=== PATIENT | male | born 1985 | race Caucasian/White ===

== ENCOUNTER 2020-11-06 17:08 | Emergency (ER) | payer MEDICARE, OTHER ==
[~2020-11-06] VITALS: Ht 172.7 cm; Wt 74.8 kg
[2020-11-06] MEDS ORDERED: NEURONTIN (17:14)
--- NOTE | 2020-11-06 17:18 | NUR ---
PATIENT WAS MSE BY DR RIVAS IN ROOM 03A.
[2020-11-06] MEDS ORDERED: LORAZEPAM 0.5 MG TABLET PO ONE (17:30)
[2020-11-06] MEDS ORDERED: LORAZEPAM 0.5 MG TABLET ONE (17:33)
--- NOTE | 2020-11-06 17:42 | NUR ---
CALLED AND SPOKE WITH PATIENT ISAIAS WILL COME IN 1 HOUR TO BASKET MENDER PATIENT.
--- NOTE | 2020-11-06 19:26 | NUR ---
Patient discharged to home in stable condition. Written and verbal after care instructions given. Patient and verbalizes understanding of instructions. Stressed follow up or return to ER for worsening s/s.
[2020-11-06 19:28] VITALS: BP 135/88
== END 2020-11-06 19:29 | disposition home or self-care (01) ==
LOC: ER 17:11
DX: F41.1 Generalized anxiety disorder (principal); R00.0 Tachycardia, unspecified; R94.31 Abnormal electrocardiogram [ECG] [EKG]; H54.8 Legal blindness, as defined in USA; R03.0 Elevated blood-pressure reading, without diagnosis of hypertension
CPT/HCPCS: 93005; A4663

== ENCOUNTER 2021-02-07 11:22 | Emergency (ER) | payer MEDICARE, OTHER ==
[~2021-02-07] VITALS: Ht 175.3 cm; Wt 77.1 kg
[~2021-02-07 11:22] MED LIST: NEURONTIN
--- NOTE | 2021-02-07 11:25 | NUR ---
Patient brought in [facility] for an intentional overdose of gabapentin
--- NOTE | 2021-02-07 11:30 | NUR ---
[employer] at bedside speaking with the pt about the incident.
[2021-02-07] MEDS ORDERED: DIAZ5TAB4 PO (11:34)
[2021-02-07] MEDS ORDERED: GABA-532 PO (11:34)
[2021-02-07] MEDS ORDERED: DULO60CA45 PO (11:34)
[2021-02-07] MEDS ORDERED: OLAN10TA3 PO (11:34)
[2021-02-07 11:52] LABS: *BILIRUBIN,URIN NEGATIVE (NEGATIVE); *BLOOD, URINE NEGATIVE (NEGATIVE); *CLARITY,URINE CLEAR (CLEAR); *COLOR,URINE YELLOW (YELLOW); *KETONES,URINE NEGATIVE (NEGATIVE); *UROBILINOGEN,URINE 0.2 E.U./dl (NORMAL); LEUKOCYTE ESTERASE ,URINE NEGATIVE (NEGATIVE); NITRITE, URINE NEGATIVE (NEGATIVE); PH,URINE 8.5 (5.0-8.0); UGLUCOSE NEGATIVE (NEGATIVE)
[2021-02-07 11:59] LABS: HEMATOCRIT 49.5 % (36.7-47.1); MEAN CORPUSCULAR HEMOGLOBIN 31.8 uug (23.8-33.4); MEAN CORPUSCULAR VOLUME 91.5 fL (73.0-96.2); PLATELET COUNT (AUTO) 132 K/uL (152-348)
[2021-02-07 12:03] LABS: *AMPHETAMINE, URINE NEGATIVE (NEGATIVE); *CANNABINOID, URINE NEGATIVE (NEGATIVE); *COCCAINE, URINE NEGATIVE (NEGATIVE); *OPIATE, URINE NEGATIVE (NEGATIVE); *PHENCYCLIDINE SCREEN,URINE NEGATIVE (NEGATIVE)
[2021-02-07] MEDS ORDERED: LORAZEPAM 2 MG/1 ML VIAL ONE ×3 (12:09→20:32)
--- NOTE | 2021-02-07 12:09 | NUR ---
Security noted at bedside for 1 to 1 observation, patient states he took the excessive amount of gabapentin because he was anxious while watching tv
[2021-02-07 12:10] LABS: ALANINE AMINOTRANSFERASE 25 U/L (16-63); ALKALINE PHOSPHATASE 63 U/L (50-136); ASPARTATE AMINOTRANSFERASE 11 U/L (15-37); BILIRUBIN,DIRECT 0.1 mg/dL (0.0-0.2); BILIRUBIN,TOTAL 0.8 mg/dL (0.2-1.0); CARBON DIOXIDE 29 mmol/L (21-32); CHLORIDE 106 mmol/L (98-107); CREATINE KINASE, TOTAL 128 U/L (39-308); CREATININE 1.2 mg/dL (0.6-1.3); GLUCOSE 128 mg/dL (74-106); POTASSIUM 4.3 mmol/L (3.5-5.1); TOTAL PROTEIN, SERUM 7.3 g/dL (6.4-8.2); UREA NITROGEN, BLOOD 15 mg/dL (7-18)
[2021-02-07 12:14] LABS: ACETAMINOPHEN < 2.0 ug/mL (10-30)
[2021-02-07] MEDS ORDERED: LORAZEPAM 2 MG/1 ML VIAL IV ONE ×3 (12:15→20:30)
[2021-02-07 12:17] LABS: THYROID STIMULATING HORMONE 1.428 mIU/mL (0.358-3.740)
[2021-02-07 12:40] LABS: ETHANOL < 3 MG/DL (0-0)
--- NOTE | 2021-02-07 13:28 | NUR ---
Bri called at this time for evaluation, message left
[2021-02-07] MEDS ORDERED: IV NS 1000 ML 1,000 ML IV ONE (13:30)
--- NOTE | 2021-02-07 14:22 | NUR ---
Spoke to Bri from crisis, states she will be here come after visiting [facility] ofr other consults
--- NOTE | 2021-02-07 16:00 | NUR ---
Bri at bedside for psych eval.
--- NOTE | 2021-02-07 17:08 | NUR ---
Per Bri she called [facility] and they have no available beds. She faxed pt's information to [facility], no beds at this time but they will call back if a bed becomes available. She contacted [facility] who stated there are no beds available at this time. Per Bri we should follow up with [facility] later.
--- NOTE | 2021-02-07 19:07 | NUR ---
REPORT GIVEN TO STEPH TOBAR.
--- NOTE | 2021-02-07 21:48 | NUR ---
Called [facility] , spoke with [place], info was sent to [facility], no beds available, they will see look at his case if there are beds available in the morning.
[2021-02-07] MEDS ORDERED: HYDROCODONE/APAP 5-325MG TABLET ONE (22:02)
[2021-02-07] MEDS ORDERED: PHENAZOPYRIDINE HCL 100 MG TABLET ONE (22:02)
--- NOTE | 2021-02-07 22:12 | NUR ---
Security pulled from being sitter due to short staff per nursing stack supervisor, will continue to monitor patient. Patient sleeping in bed, no acute signs of distress.
--- NOTE | 2021-02-08 01:10 | NUR ---
Sitter at bedside.
[2021-02-08] MEDS ORDERED: LORAZEPAM 2 MG/1 ML VIAL ONE ×2 (04:26→08:41)
[2021-02-08] MEDS ORDERED: LORAZEPAM 2 MG/1 ML VIAL IV ONE ×2 (04:30→08:45)
[2021-02-08] MEDS ORDERED: OLANZAPINE 5 MG TABLET PO ONE ×2 (06:45→19:45)
[2021-02-08] MEDS ORDERED: OLANZAPINE 5 MG TABLET ONE ×2 (06:47→20:03)
--- NOTE | 2021-02-08 07:14 | NUR ---
Pt assissted to bathroom by 1 to 1 sitter w/ steady gait.
--- NOTE | 2021-02-08 07:16 | NUR ---
Yon, day shift 1 to 1 sitter at the bedside for safety.
[2021-02-08] MEDS ORDERED: ONDANSETRON 4 MG/2 ML VIAL ONE (07:43)
[2021-02-08] MEDS ORDERED: ONDANSETRON 4 MG/2 ML VIAL IV ONE (07:45)
--- NOTE | 2021-02-08 10:47 | NUR ---
Placed a call to [facility] @ [phone] and no beds avaiable at this time. placed a call to [facility] and spoke to Candida, @ [phone], will notify if a bed becomes availaable.
--- NOTE | 2021-02-08 11:11 | NUR ---
Patient is resting comfortably in bed with eyes closed, NAD noted. 1 to 1 sitter at the bedside. Lunch tray ordered.
--- NOTE | 2021-02-08 12:14 | NUR ---
Called and left message for Bri Galeano RN from [facility], to followup for pt's placement. Awaiting call back.
--- NOTE | 2021-02-08 12:41 | NUR ---
lunch tray provided. Pt ate w/ moderate appetite.
--- NOTE | 2021-02-08 14:27 | NUR ---
Patient is resting comfortably in bed with eyes closed, NAD noted.
--- NOTE | 2021-02-08 16:05 | NUR ---
Bri Galeano RN, reevaluate the pt. Pt gave his mother's number, Sulema [phone].
--- NOTE | 2021-02-08 19:07 | NUR ---
[employer] report given to siva CHOI.
--- NOTE | 2021-02-08 19:10 | NUR ---
Recieved report from STEPH Wright. Pt in bed, stable,resting.
--- NOTE | 2021-02-08 19:11 | NUR ---
1:1 reema Quesada at bedside.
[2021-02-08] MEDS ORDERED: LORAZEPAM 0.5 MG TABLET PO ONE (19:45)
--- NOTE | 2021-02-08 19:50 | NUR ---
Spoke with mother Sulema at [phone], mother states he is able to picking machine operator helper patient to take over his care. Patient and ERMD is made aware. Spoke with Bri crisis nurse and made aware that patient is able to get picked up by family member and Bri stated that patient is ok to be taken out of the hold. Patient denies self harm or any SI. Patient A/O x4.
[2021-02-08] MEDS ORDERED: LORAZEPAM 0.5 MG TABLET ONE (20:02)
[2021-02-08] MEDS ORDERED: OLAN15TA3 PO (20:03)
[2021-02-08] MEDS ORDERED: LORA2TAB95 PO (20:03)
--- NOTE | 2021-02-08 20:28 | NUR ---
Patient discharged to home in stable condition. A/O x4, no SOB or labored breathing, afebrile. No c/o pain/discomfort. patient denies SI or any self harm. Written and verbal after care instructions given. Patient verbalizes understanding of instructions. Stressed follow up or return to ER for worsening s/s. Steady gait. Picked up by mother Sulema.
[2021-02-08 21:17] VITALS: BP 136/84
== END 2021-02-08 20:30 | disposition home or self-care (01) ==
LOC: ER 11:22
DX: T42.6X1A Poisoning by other antiepileptic and sedative-hypnotic drugs, accidental (unintentional), initial encounter (principal); R06.02 Shortness of breath; Y92.019 Unspecified place in single-family (private) house as the place of occurrence of the external cause; F31.9 Bipolar disorder, unspecified; F17.210 Nicotine dependence, cigarettes, uncomplicated; F41.9 Anxiety disorder, unspecified; H54.8 Legal blindness, as defined in USA; Z20.822 Contact with and (suspected) exposure to COVID-19
CPT/HCPCS: 36415; 71045; 80048; 80076; 80299; 80307; 80320; 81003; 82550; 84443; 85025; 87426; 93005; 96361; 96374; 96375; 96376 ×2; 99285; J2060 ×5; J2405; A4663; G0480; J7030

== ENCOUNTER 2021-09-14 16:26 | Emergency (ER) | payer MEDICARE, OTHER ==
[~2021-09-14] VITALS: Ht 175.3 cm; Wt 77.1 kg
[~2021-09-14 16:26] MED LIST changes: +DIAZ5TAB4 PO; +DULO60CA45 PO; +GABA-532 PO; +LORA2TAB95 PO; -NEURONTIN; +OLAN10TA3 PO; +OLAN15TA3 PO
[2021-09-14] MEDS ORDERED: LORAZEPAM 1 MG TABLET ONE (17:12)
[2021-09-14] MEDS ORDERED: LORAZEPAM 0.5 MG TABLET PO ONE (17:15)
[2021-09-14 17:20] LABS: HEMATOCRIT 46.1 % (36.7-47.1); MEAN CORPUSCULAR HEMOGLOBIN 32.3 uug (23.8-33.4); MEAN CORPUSCULAR VOLUME 90.5 fL (73.0-96.2); PLATELET COUNT (AUTO) 139 K/uL (152-348)
[2021-09-14 17:27] LABS: CARBON DIOXIDE 23 mmol/L (21-32); CHLORIDE 102 mmol/L (98-107); CREATININE 1.1 mg/dL (0.6-1.3); GLUCOSE 112 mg/dL (74-106); POTASSIUM 3.8 mmol/L (3.5-5.1); UREA NITROGEN, BLOOD 14 mg/dL (7-18)
[2021-09-14 17:31] LABS: ETHANOL < 3 MG/DL (0-0)
[2021-09-14 17:33] LABS: ALANINE AMINOTRANSFERASE 22 U/L (16-63); ALKALINE PHOSPHATASE 63 U/L (50-136); ASPARTATE AMINOTRANSFERASE 11 U/L (15-37); BILIRUBIN,DIRECT 0.2 mg/dL (0.0-0.2); BILIRUBIN,TOTAL 0.6 mg/dL (0.2-1.0); TOTAL PROTEIN, SERUM 7.5 g/dL (6.4-8.2)
[2021-09-14 17:36] LABS: ACETAMINOPHEN < 2.0 ug/mL (10-30)
[2021-09-14] MEDS ORDERED: OLANZAPINE 5 MG TABLET PO ONE (17:45)
[2021-09-14] MEDS ORDERED: OLANZAPINE 5 MG TABLET ONE (18:01)
[2021-09-14 18:12] LABS: *BILIRUBIN,URIN NEGATIVE (NEGATIVE); *BLOOD, URINE NEGATIVE (NEGATIVE); *CLARITY,URINE CLEAR (CLEAR); *COLOR,URINE YELLOW (YELLOW); *KETONES,URINE NEGATIVE (NEGATIVE); *UROBILINOGEN,URINE 0.2 E.U./dl (NORMAL); LEUKOCYTE ESTERASE ,URINE NEGATIVE (NEGATIVE); NITRITE, URINE NEGATIVE (NEGATIVE); PH,URINE 5.5 (5.0-8.0); UGLUCOSE NEGATIVE (NEGATIVE)
[2021-09-14 18:25] LABS: *AMPHETAMINE, URINE NEGATIVE (NEGATIVE)
--- NOTE | 2021-09-14 18:40 | NUR ---
Dr Ricardo medically cleared the pt. Called [facility], Glenys Jackson RN, ETA shortly.
[2021-09-14 18:47] LABS: *CANNABINOID, URINE NEGATIVE (NEGATIVE); *COCCAINE, URINE NEGATIVE (NEGATIVE); *OPIATE, URINE NEGATIVE (NEGATIVE); *PHENCYCLIDINE SCREEN,URINE NEGATIVE (NEGATIVE)
--- NOTE | 2021-09-14 19:15 | NUR ---
Glenys Jackson from [facility] at the bedside speaking w/ pt.
--- NOTE | 2021-09-14 20:16 | NUR ---
Patient is resting comfortably in bed with eyes closed, NAD noted.
[2021-09-14] MEDS ORDERED: LORAZEPAM 2 MG/1 ML VIAL IM ONE (21:15)
[2021-09-14] MEDS ORDERED: LORAZEPAM 2 MG/1 ML VIAL IV ONE (21:15)
[2021-09-14] MEDS ORDERED: LORAZEPAM 2 MG/1 ML VIAL ONE (21:30)
--- NOTE | 2021-09-15 03:12 | NUR ---
V[place] FROM [facility] CALLED BACK AND STATED PATIENT IS ACCEPTED. SHE WILL CALL BACK FOR TRANSFER INFO.
[2021-09-15] MEDS ORDERED: LORAZEPAM 2 MG/1 ML VIAL IM ONE (04:30)
[2021-09-15] MEDS ORDERED: LORAZEPAM 2 MG/1 ML VIAL ONE (05:06)
[2021-09-15] MEDS ORDERED: OLANZAPINE 10 MG VIAL IM ONE ×2 (05:45→06:11)
--- NOTE | 2021-09-15 05:56 | NUR ---
VIR[place]IA FROM [facility] CALLED BACK WITH TRANSFER INFO. PATIENT WILL BE GOING TO [facility] [place] UN[address]. ACCEPTING MD IS DR DE SOUZA. CALL FOR REPORT NUMBER IS . [facility] SET UP TRANSPORT VIA [facility] WITH ETA IS [phone].
[2021-09-15] MEDS ORDERED: OLANZAPINE 5 MG TABLET PO ONE (06:15)
[2021-09-15] MEDS ORDERED: OLANZAPINE 5 MG TABLET ONE (06:19)
--- NOTE | 2021-09-15 06:32 | NUR ---
ATTEMPTED TO CALL FOR REPORT TO [facility] CHARGE NURSE KEVIN , BUT KEVIN STATES HE IS UNABLE TO TAKE REPORT AT THIS TIME DUE TO SHORT STAFFING.
[2021-09-15] MEDS ORDERED: ONDANSETRON ODT 4 MG TAB.RAPDIS ONE (07:00)
[2021-09-15] MEDS ORDERED: ONDANSETRON ODT 4 MG TAB.RAPDIS SL ONE (07:15)
--- NOTE | 2021-09-15 08:24 | NUR ---
[facility] [address] WAS CALLED FOR REPORT , TALKED TO NURSING RESIDENCY DIRECTOR CATARINA. HE STATED THAT THEY SHORT OF STAFF NOW AND CAN NOT TAKE THE PT. HE WILL CALL BACK TO [facility] ER WHEN THEY WILL HAVE AVAILABLE NURSES TO ADMITT THE PT.
[2021-09-15] MEDS ORDERED: NICOTINE 14 MG/24HR PATCH TD SCH (09:00)
--- NOTE | 2021-09-15 10:31 | NUR ---
REPORT WAS GIVEN TO [facility] [address]. PT WAS TRANSFERED TO [facility] [address] VOLUNTARY ADMISSION.
[2021-09-15 10:39] VITALS: BP 136/78
== END 2021-09-15 10:40 ==
LOC: ER 16:27
DX: R45.851 Suicidal ideations (principal); H54.8 Legal blindness, as defined in USA; Z20.822 Contact with and (suspected) exposure to COVID-19; Z79.899 Other long term (current) drug therapy; F31.9 Bipolar disorder, unspecified; F41.9 Anxiety disorder, unspecified; Z91.89 Other specified personal risk factors, not elsewhere classified; Z82.49 Family history of ischemic heart disease and other diseases of the circulatory system
CPT/HCPCS: 36415; 80048; 80076; 80299; 80307; 80320; 81003; 85025; 87426; 96372 ×2; 99285; J2060 ×2; A4663; G0480; J2358; Q0162